=== PATIENT | female | born 1990 | race Two or more races ===

== ENCOUNTER 2018-02-27 16:05 | Emergency (ER) | payer MEDICAID ==
[~2018-02-27] VITALS: Ht 162.6 cm; Wt 68.0 kg
[2018-02-27] MEDS ORDERED: NKM (16:20)
[2018-02-27 16:36] VITALS: BP 128/65
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
[2018-02-27] MEDS ORDERED: Naproxen 500mg tab ORAL ONE (17:15)
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
[2018-02-27] MEDS ORDERED: BACTROBAN15 GM TOPIC (17:56)
[2018-02-27] MEDS ORDERED: BACTRIM DS TAB1 EAC1 ORAL (17:56)
[2018-02-27] MEDS ORDERED: NAPROXEN500 M2 ORAL (17:56)
[2018-02-27] MEDS ORDERED: Bacitracin Oint UD TOPIC ONE (18:00)
[2018-02-27 19:08] VITALS: BP 130/66
--- NOTE | 2018-02-27 19:10 | Diagnostic Imaging Report ---
History: TRAUMA Exam: XR RIGHT ELBOW 3 views Comparison: None available FINDINGS: The lateral view is limited with some obliquity present. No evidence of joint effusion. No fracture or dislocation. Soft tissue swelling suggested adjacent to the medial lower humerus. No radiopaque foreign body. IMPRESSION: The lateral view is limited with some obliquity present. No evidence of joint effusion. No fracture or dislocation. Soft tissue swelling suggested adjacent to the medial lower humerus. No radiopaque foreign body.
--- NOTE | 2018-02-27 19:10 | NUR ---
ED Nurse Note: Patient is being discharged from medical care. Awake, alert and oriented x4. After care instructions, were given. Patient verbalized understanding of After care instructions. All medical devices such as ID band were removed. Patient ambulated out with all personal belongings with steady gait.
== END 2018-02-27 19:10 | disposition home or self-care (01) ==
LOC: EMR 17:51
DX: S41.111A Laceration without foreign body of right upper arm, initial encounter (principal); L08.9 Local infection of the skin and subcutaneous tissue, unspecified; W25.XXXA Contact with sharp glass, initial encounter; Y92.9 Unspecified place or not applicable
CPT/HCPCS: 99283